=== PATIENT | male | born 1955 | race Caucasian/White ===

== ENCOUNTER 2021-07-20 19:56 | Inpatient (IN) | payer MEDICARE, OTHER ==
[~2021-07-20] VITALS: Ht 175.3 cm; Wt 112.0 kg
[2021-07-20] MEDS ORDERED: temazepam 15mg capsule PO PRN (21:00)
--- NOTE | 2021-07-20 22:00 | NUR ---
Patient in room PCU 3024. I have received report from Sue ROMAN and had the opportunity to ask questions and assume patient care.
[2021-07-20 23:00] VITALS: BP 145/75
[2021-07-20] MEDS ORDERED: morphine 2 MG/ML inj. syringe IV PRN ×2 (23:50)
[2021-07-20] MEDS ORDERED: acetaminophen 325mg tablet PO PRN ×2 (23:50)
[2021-07-20] MEDS ORDERED: HYDROcodone/acetaminophen 5mg/325mg tablet PO PRN (23:50)
[2021-07-20] MEDS ORDERED: mag hydrox/Alum hydrox/simeth 30ml oral suspension PO PRN (23:50)
[2021-07-20] MEDS ORDERED: magnesium hydroxide 30ml (MOM) UD suspension PO PRN (23:50)
[2021-07-20] MEDS ORDERED: ondansetron 4mg rapidly disintigrating tab PO PRN (23:50)
[2021-07-20] MEDS: normal saline 1000ml 1,000 ML IV SCH (23:50)
[2021-07-20] MEDS ORDERED: HYDROmorphone inj. 0.5 MG/0.5 ML DISP.SYRIN IV PRN (23:50)
[2021-07-20] MEDS ORDERED: bisacodyl 10mg suppository rectal RC PRN (23:50)
[2021-07-20] MEDS ORDERED: diphenhydrAMINE 25mg capsule PO PRN (23:50)
[2021-07-20] MEDS ORDERED: diphenhydrAMINE 50 mg/ml inj IV PRN (23:50)
[2021-07-20] MEDS ORDERED: ondansetron/PF 4mg/2ml inj IV PRN (23:50)
[2021-07-20] MEDS ORDERED: HYDROcodone/acetaminophen 10/325mg tab PO PRN (23:50)
[2021-07-20] MEDS ORDERED: glucagon, human recombinant 1mg kit SUBCUT PRN (23:55)
[2021-07-20] MEDS ORDERED: dextrose 50%-water 50ml dispensing syringe IV PRN ×2 (23:55)
[2021-07-20] MEDS ORDERED: MESSAGE TO PHARMACY PO ONE (23:55)
[2021-07-20] MEDS ORDERED: dextrose ORAL solution 15 GM/59 ML bottle PO PRN ×2 (23:55)
[2021-07-21 01:56] LABS: BASOPHILS % (AUTO) 0.1 % (0-1); EOSINOPHILS % (AUTO) 0.1 % (0-6); HEMATOCRIT 30.8 % (42.0-52.0); HEMOGLOBIN 9.7 g/dl (14.0-17.9); LYMPHOCYTES # (AUTO) 0.2 X10'3 (1.1-4.8); LYMPHOCYTES % (AUTO) 1.8 % (21-51); MEAN CORPUSCULAR HGB CONC 31.6 g/dL (33.0-36.5); MEAN CORPUSCULAR VOLUME 85.4 FL (78-98); MEAN PLATELET VOLUME 8.4 FL (7.4-10.4); MONOCYTES # (AUTO) 0.1 X10'3 (0-0.9); NEUTROPHILS # (AUTO) 12.8 X10'3 (1.8-7.7); PLATELET COUNT 250 X10'3 (140-440); WHITE BLOOD COUNT 13.2 X10'3 (4.5-11.0)
[2021-07-21 02:00] VITALS: BP 128/78
[2021-07-21] MEDS: heparin, porcine 5000 units/ml vial SQ SCH ×3 (02:00→16:52)
[2021-07-21 02:12] LABS: ALANINE AMINOTRANSFERASE 24 U/L (12-78); ALBUMIN 1.7 G/DL (3.4-5.0); ALBUMIN/GLOBULIN RATIO 0.3 (1.1-1.5); ALKALINE PHOSPHATASE 115 IU/L (46-116); ANION GAP 6 (8-16); ASPARTATE AMINO TRANSFERASE 26 U/L (10-37); BILIRUBIN,TOTAL 0.3 MG/DL (0.1-1.0); BLOOD UREA NITROGEN 50 MG/DL (7-18); BUN/CREATININE RATIO 21.6 (5.4-32.0); CALCIUM 7.9 MG/DL (8.5-10.1); CHLORIDE 105 MMOL/L (99-107); CHOL/HDL RATIO 4.3 (0.00-4.99); CHOLESTEROL 133 MG/DL (0-200); CREATININE 2.31 MG/DL (0.60-1.10); GLUCOSE 120 MG/DL (70-104); HDL CHOLESTEROL 31 MG/DL (35-60); LDL CHOLESTEROL 82 MG/DL (50-100); MAGNESIUM 1.2 MG/DL (1.5-2.4); PHOSPHORUS 4.7 MG/DL (2.3-4.5); POTASSIUM 5.1 MMOL/L (3.5-5.1); SODIUM 141 MMOL/L (135-145); TOTAL CARBON DIOXIDE 30.1 MMOL/L (24-32); TOTAL PROTEIN 7.1 G/DL (6.4-8.2); TRIGLYCERIDES 69 MG/DL (20-135); eGFR 28 ML/MIN
[2021-07-21 02:14] LABS: HEMOGLOBIN A1C 8.4 % (4.5-6.2)
[2021-07-21 02:36] LABS: APTT 34 SECONDS (22-32)
[2021-07-21] MEDS ORDERED: vancomycin/NS 1 GM ADD-VANTAGE 250 ML IV ONE (02:46)
[2021-07-21] MEDS ORDERED: LANTUS SQ (05:14)
[2021-07-21] MEDS ORDERED: LOSA100T57 PO (05:14)
[2021-07-21] MEDS ORDERED: PANT40TA54 PO (05:14)
[2021-07-21 06:00] VITALS: BP 149/72
--- NOTE | 2021-07-21 06:07 | NUR ---
Patient in room PCU 3024. I have received report from Makenzie ROMAN and had the opportunity to ask questions and assume patient care.
--- NOTE | 2021-07-21 06:38 | NUR ---
Problems reprioritized. Patient report given, questions answered & plan of care reviewed with Jaz ROMAN.
[2021-07-21] MEDS ORDERED: pantoprazole 40mg Tablet.DR PO SCH (07:30)
[2021-07-21] MEDS ORDERED: piperacillin/tazo 4.5gm/100ml 100 ML IV SCH (08:00)
[2021-07-21] MEDS: pantoprazole 40mg Tablet.DR PO SCH (09:22)
[2021-07-21] MEDS: docusate sod 100mg capsule PO SCH ×2 (09:22→19:20)
[2021-07-21] MEDS ORDERED: pregabalin 75mg capsule PO SCH (10:45)
[2021-07-21 11:00] VITALS: BP 158/82
--- NOTE | 2021-07-21 11:21 | NUR ---
Diabetes Consult: Noted A1C 8.4 Pt states he is tired and would prefer written DM ed to be placed in chart. Written DM ed w/ RD contact info placed in pt chart. Addendum: 07/21/21 at [address] Amended: Links added.
[2021-07-21] MEDS: nicotine 14mg patch - 24hr TD SCH (11:28)
[2021-07-21] MEDS: methadone 5mg tablet PO SCH ×2 (11:30→19:18)
[2021-07-21] MEDS: methadone 10mg tablet PO SCH ×2 (11:30→19:19)
[2021-07-21] MEDS ORDERED: METH-603 PO (13:01)
[2021-07-21] MEDS ORDERED: PREG200C28 PO (13:01)
[2021-07-21] MEDS ORDERED: TRAZ-251 PO (13:01)
[2021-07-21] MEDS ORDERED: ALBU8.5H17 IH (13:01)
[2021-07-21] MEDS ORDERED: DULA1.5P SQ (13:01)
[2021-07-21] MEDS ORDERED: LISI20TA28 PO (13:01)
[2021-07-21] MEDS ORDERED: ASPI-1397 PO (13:01)
[2021-07-21] MEDS: insulin Lispro (HumaLOG) vial - multi-dose SQ SCH ×2 (14:42→19:26)
[2021-07-21] MEDS ORDERED: potassium CL 10mEq/100ml bag 100 ML IV PRN (15:15)
[2021-07-21] MEDS ORDERED: potassium Cl 20 mEq SR tablet PO PRN ×2 (15:15)
[2021-07-21] MEDS ORDERED: magnesium 4gm in 100ml NS 100 ML IV PRN (15:15)
[2021-07-21] MEDS ORDERED: magnesium 2GM in 50ml NS 50 ML IV PRN (15:15)
[2021-07-21] MEDS: piperacillin/tazo 4.5gm/100ml 100 ML IV SCH (16:52)
[2021-07-21 18:00] VITALS: BP 149/71
--- NOTE | 2021-07-21 18:16 | NUR ---
Problems reprioritized. Patient report given, questions answered & plan of care reviewed with Makenzie ROMAN, patient stable at the transfer of care.
[2021-07-21] MEDS ORDERED: pantoprazole 40mg Tablet.DR PO PRN (18:30)
[2021-07-21] MEDS ORDERED: albuterol 2.5 MG/3 ML nebule NEB PRN (18:30)
[2021-07-21] MEDS: lactobacillus rhamnosus 10,000 MMU CELLS/CAPSULE PO SCH (19:19)
[2021-07-21] MEDS: normal saline 1000ml 1,000 ML IV SCH (19:50)
[2021-07-21] MEDS ORDERED: methadone 10mg tablet PO SCH (20:00)
[2021-07-21] MEDS: K and/or MAG REPLACEMENT MC SCH (20:00)
[2021-07-21] MEDS: pregabalin 75mg capsule PO SCH (21:29)
[2021-07-21] MEDS: pregabalin 25mg capsule PO SCH (21:30)
[2021-07-21] MEDS: insulin glargine (Lantus) pen - multi-dose SQ SCH (21:41)
[2021-07-21 22:00] VITALS: BP 158/78
[2021-07-21] MEDS ORDERED: nitroGLYCERIN 0.4mg SUBLingual tab SL PRN (23:10)
[2021-07-21] MEDS ORDERED: regadenoson 0.4mg/5ml syringe IV PRN (23:10)
[2021-07-21] MEDS ORDERED: aminophylline 250mg/10ml inj. IV PRN (23:10)
[2021-07-21] MEDS ORDERED: metoprolol tartrate 1mg/ml inj IV PRN (23:10)
[2021-07-22] MEDS: traZODone 50mg tablet PO PRN ×2 (01:26→21:34)
[2021-07-22] MEDS: heparin, porcine 5000 units/ml vial SQ SCH ×3 (01:27→16:59)
[2021-07-22] MEDS: piperacillin/tazo 4.5gm/100ml 100 ML IV SCH ×3 (01:27→16:58)
[2021-07-22 02:00] VITALS: BP 113/68
[2021-07-22 02:10] LABS: BASOPHILS # (AUTO) 0.1 X10'3 (0-0.2); BASOPHILS % (AUTO) 0.5 % (0-1); EOSINOPHILS # (AUTO) 0.1 X10'3 (0-0.9); EOSINOPHILS % (AUTO) 0.4 % (0-6); HEMATOCRIT 28.1 % (42.0-52.0); HEMOGLOBIN 9.1 g/dl (14.0-17.9); LYMPHOCYTES # (AUTO) 1.2 X10'3 (1.1-4.8); LYMPHOCYTES % (AUTO) 9.3 % (21-51); MEAN CORPUSCULAR HEMOGLOBIN 27.3 PG (27.0-31.0); MEAN CORPUSCULAR HGB CONC 32.5 g/dL (33.0-36.5); MEAN PLATELET VOLUME 8.6 FL (7.4-10.4); MONOCYTES # (AUTO) 1.1 X10'3 (0-0.9); NEUTROPHILS # (AUTO) 10.9 X10'3 (1.8-7.7); NEUTROPHILS % (AUTO) 81.8 % (42-75); PLATELET COUNT 275 X10'3 (140-440); RED BLOOD COUNT 3.35 X10'6 (4.70-6.10); RED CELL DISTRIBUTION WIDTH 16.4 % (11.5-14.5); WHITE BLOOD COUNT 13.3 X10'3 (4.5-11.0)
[2021-07-22 02:25] LABS: ALANINE AMINOTRANSFERASE 14 U/L (12-78); ALBUMIN 1.6 G/DL (3.4-5.0); ALBUMIN/GLOBULIN RATIO 0.3 (1.1-1.5); ALKALINE PHOSPHATASE 97 IU/L (46-116); ANION GAP 7 (8-16); ASPARTATE AMINO TRANSFERASE 18 U/L (10-37); BILIRUBIN,TOTAL 0.2 MG/DL (0.1-1.0); BLOOD UREA NITROGEN 55 MG/DL (7-18); BUN/CREATININE RATIO 29.1 (5.4-32.0); CALCIUM 7.6 MG/DL (8.5-10.1); CHLORIDE 107 MMOL/L (99-107); CREATININE 1.89 MG/DL (0.60-1.10); GLUCOSE 100 MG/DL (70-104); SODIUM 141 MMOL/L (135-145); TOTAL CARBON DIOXIDE 26.8 MMOL/L (24-32); TOTAL PROTEIN 6.2 G/DL (6.4-8.2); eGFR 36 ML/MIN
[2021-07-22 02:29] LABS: MAGNESIUM 1.4 MG/DL (1.5-2.4)
[2021-07-22 03:07] LABS: TOTAL CELLS COUNTED 100
[2021-07-22 03:25] LABS: ANISOCYTOSIS 1+; PLATELET ESTIMATE NORMAL
[2021-07-22] MEDS: VANCOMYCIN 750MG IV in NS 250 ML IV SCH (03:48)
[2021-07-22] MEDS: normal saline 1000ml 1,000 ML IV SCH ×2 (05:50→16:58)
[2021-07-22 06:06] VITALS: BP 134/57
[2021-07-22] MEDS: nicotine 14mg patch - 24hr TD SCH (08:55)
[2021-07-22] MEDS: pregabalin 75mg capsule PO SCH ×3 (08:56→20:11)
[2021-07-22] MEDS: pregabalin 25mg capsule PO SCH ×3 (08:57→20:10)
[2021-07-22] MEDS: methadone 5mg tablet PO SCH ×2 (08:57→20:10)
[2021-07-22] MEDS: docusate sod 100mg capsule PO SCH ×2 (08:57→20:10)
[2021-07-22] MEDS: aspirin 81mg, enteric-coated 1 TAB TABLET.DR PO SCH (08:57)
[2021-07-22] MEDS: lactobacillus rhamnosus 10,000 MMU CELLS/CAPSULE PO SCH ×2 (08:57→20:10)
[2021-07-22] MEDS: methadone 10mg tablet PO SCH ×2 (09:09→20:14)
[2021-07-22] MEDS: K and/or MAG REPLACEMENT MC SCH ×2 (09:10→20:00)
[2021-07-22] MEDS: pantoprazole 40mg Tablet.DR PO SCH (09:10)
[2021-07-22] MEDS: magnesium Cl slow-release 64mg tablet PO PRN ×2 (09:12→20:21)
[2021-07-22 11:11] VITALS: BP 138/85
[2021-07-22] MEDS: ipratropium/albuterol 3ml nebule NEB PRN ×2 (12:45→20:36)
--- NOTE | 2021-07-22 15:14 | NUR ---
WOUND INFECTION EDUCATION PROVIDED BY WOUND CARE 1. Patient instructed to call their primary doctor, or go the ED immediately if any of the following symptoms occur: * Increased pain in wound * Increase in drainage from the wound * Redness in the skin surrounding the wound * Warmth in the skin surrounding the wound * Bleeding from the wound * Temperature of 101 or greater 2. If any of these occur while in the hospital tell a nurse immediately. PRESSURE ULCER EDUCATION: DEFINITION: A pressure ulcer is an area of skin that breaks down when you stay in one position too long. The constant pressure against the skin reduces the blood flow to that area and the affected tissue dies. CAUSES: "Being bedridden or in a wheelchair "Fragile skin "Having a chronic condition, such as diabetes or vascular disease "Inability to move certain parts of your body without assistance "Older age "Incontinence of urine or stool SYMPTOMS: "A reddened area that DOES NOT turn white when pressed on - this can be the beginning of a pressure ulcer "A blister, deep sore or a crater - these can be advanced pressure ulcers FIRST AID: "Relieve the pressure on this area "Keep the area clean and dry "Call your primary doctor if you see any of the above symptoms "DO NOT massage the area "DO NOT use a donut shaped or ring shaped pillow- these actually interfere with the blood flow and cause complications PREVENTION: "Check for pressure ulcers everyday "Change position at least every two hours to relieve pressure "Use items that help relieve pressure- pillows, sheepskin, foam padding, and powders. "Keep skin clean and dry "Eat healthy well balanced meals "Exercise daily IF YOU SEE ANY OF THESE SYMPTOMS WHILE IN THE HOSPITAL - TELL YOUR NURSE IMMEDIATELY. IF YOU SEE ANY OF THESE SYMPTOMS WHILE AT HOME OR HAVE ANY QUESTIONS OR CONCERNS ABOUT PRESSURE ULCERS - CALL YOUR PRIMARY DOCTOR IMMEDIATELY. Addendum: 07/22/21 at 1515 by Megan Rodriguez RN Amended: Links added.
[2021-07-22 15:15] VITALS: BP 121/79
[2021-07-22 18:00] VITALS: BP 140/73
--- NOTE | 2021-07-22 18:40 | NUR ---
Patient in room PCU 3024. I have received report from TACO ROMAN and had the opportunity to ask questions and assume patient care.
[2021-07-22] MEDS: metoprolol tartrate 12.5mg (1/2 tablet) PO SCH (20:10)
[2021-07-22] MEDS: insulin glargine (Lantus) pen - multi-dose SQ SCH (21:00)
[2021-07-22] MEDS ORDERED: morphine 4 MG/ML inj SYRINge IV ONE (21:50)
[2021-07-22 22:00] VITALS: BP 142/106
[2021-07-23] MEDS: piperacillin/tazo 4.5gm/100ml 100 ML IV SCH ×3 (00:31→15:19)
[2021-07-23] MEDS: heparin, porcine 5000 units/ml vial SQ SCH ×3 (00:31→15:20)
[2021-07-23 02:00] VITALS: BP 145/78
[2021-07-23] MEDS: VANCOMYCIN 750MG IV in NS 250 ML IV SCH (04:49)
[2021-07-23] MEDS: normal saline 1000ml 1,000 ML IV SCH ×2 (04:58→11:50)
[2021-07-23 06:00] VITALS: BP 133/82
--- NOTE | 2021-07-23 06:20 | NUR ---
Problems reprioritized. Patient report given, questions answered & plan of care reviewed with RAMIRO ROMAN.
[2021-07-23] MEDS: pregabalin 25mg capsule PO SCH ×3 (07:42→20:46)
[2021-07-23] MEDS: metoprolol tartrate 12.5mg (1/2 tablet) PO SCH ×2 (07:42→21:01)
[2021-07-23] MEDS: nicotine 14mg patch - 24hr TD SCH (07:43)
[2021-07-23] MEDS: pregabalin 75mg capsule PO SCH ×3 (07:43→20:46)
[2021-07-23] MEDS: methadone 5mg tablet PO SCH ×2 (07:44→20:47)
[2021-07-23] MEDS: pantoprazole 40mg Tablet.DR PO SCH (07:45)
[2021-07-23] MEDS: lisinopril 20mg tablet PO SCH (07:45)
[2021-07-23] MEDS: methadone 10mg tablet PO SCH ×2 (07:45→20:46)
[2021-07-23] MEDS: lactobacillus rhamnosus 10,000 MMU CELLS/CAPSULE PO SCH ×2 (07:45→20:46)
[2021-07-23] MEDS: docusate sod 100mg capsule PO SCH (07:47)
[2021-07-23] MEDS: aspirin 81mg, enteric-coated 1 TAB TABLET.DR PO SCH (07:48)
[2021-07-23] MEDS: K and/or MAG REPLACEMENT MC SCH ×2 (07:48→20:00)
[2021-07-23 08:29] LABS: ALANINE AMINOTRANSFERASE 14 U/L (12-78); ALBUMIN 1.9 G/DL (3.4-5.0); ALBUMIN/GLOBULIN RATIO 0.3 (1.1-1.5); ALKALINE PHOSPHATASE 105 IU/L (46-116); ANION GAP 9 (8-16); ASPARTATE AMINO TRANSFERASE 16 U/L (10-37); BILIRUBIN,TOTAL 0.3 MG/DL (0.1-1.0); BLOOD UREA NITROGEN 57 MG/DL (7-18); BUN/CREATININE RATIO 25.6 (5.4-32.0); CHLORIDE 107 MMOL/L (99-107); CREATININE 2.23 MG/DL (0.60-1.10); GLUCOSE 124 MG/DL (70-104); MAGNESIUM 1.5 MG/DL (1.5-2.4); POTASSIUM 5.4 MMOL/L (3.5-5.1); SODIUM 143 MMOL/L (135-145); TOTAL CARBON DIOXIDE 27.4 MMOL/L (24-32); TOTAL PROTEIN 7.5 G/DL (6.4-8.2); eGFR 29 ML/MIN
[2021-07-23 11:00] VITALS: BP 148/76
[2021-07-23 12:25] LABS: BASOPHILS # (AUTO) 0.1 X10'3 (0-0.2); BASOPHILS % (AUTO) 0.5 % (0-1); EOSINOPHILS # (AUTO) 0.1 X10'3 (0-0.9); EOSINOPHILS % (AUTO) 1.4 % (0-6); HEMATOCRIT 31.6 % (42.0-52.0); HEMOGLOBIN 10.1 g/dl (14.0-17.9); LYMPHOCYTES % (AUTO) 9.1 % (21-51); MEAN CORPUSCULAR HEMOGLOBIN 27.5 PG (27.0-31.0); MEAN CORPUSCULAR HGB CONC 31.9 g/dL (33.0-36.5); MEAN CORPUSCULAR VOLUME 86.3 FL (78-98); MONOCYTES # (AUTO) 1.1 X10'3 (0-0.9); MONOCYTES % (AUTO) 10.1 % (2-12); NEUTROPHILS # (AUTO) 8.5 X10'3 (1.8-7.7); NEUTROPHILS % (AUTO) 78.9 % (42-75); PLATELET COUNT 263 X10'3 (140-440); RED BLOOD COUNT 3.66 X10'6 (4.70-6.10); RED CELL DISTRIBUTION WIDTH 16.7 % (11.5-14.5); WHITE BLOOD COUNT 10.7 X10'3 (4.5-11.0)
[2021-07-23 15:00] VITALS: BP 154/77
[2021-07-23] MEDS: albuterol 2.5 MG/3 ML nebule NEB SCH ×2 (16:18→21:00)
[2021-07-23] MEDS ORDERED: furosemide 40mg/4ml inj IV ONE (17:50)
[2021-07-23 18:00] VITALS: BP 140/54
[2021-07-23] MEDS: ipratropium/albuterol 3ml nebule NEB PRN (20:11)
[2021-07-23 20:29] LABS: ABG BASE EXCESS 1.7 mmol/L (-2.0-2.0); ABG HCO3 28.6 mmol/L (22.0-26.0); ABG OXYGEN SATURATION 96.8 % (94-97); ABG PCO2 (T) 56.1 mmHg (35.0-48.0); ABG PO2 (T) 98.4 mmHg (75.0-100.0); ALLEN'S TEST POSITIVE; FCOHb 0.3 % (0.0-3.9); FLOW 12 L/min; FMetHb 0.2 % (0.0-1.5); FO2Hb 96.3 % (94-97); PATIENT TEMPERATURE 36.6; TOTAL HEMOGLOBIN 10.3 G/dl (14.0-18.0)
[2021-07-23] MEDS: insulin glargine (Lantus) pen - multi-dose SQ SCH (21:00)
[2021-07-23 22:00] VITALS: BP 147/58
[2021-07-24] MEDS: piperacillin/tazo 4.5gm/100ml 100 ML IV SCH ×3 (00:26→19:54)
[2021-07-24] MEDS: heparin, porcine 5000 units/ml vial SQ SCH ×3 (00:27→19:54)
[2021-07-24] MEDS: traZODone 50mg tablet PO PRN (00:46)
[2021-07-24] MEDS: normal saline 1000ml 1,000 ML IV SCH ×2 (00:56→19:53)
[2021-07-24 01:30] LABS: ALANINE AMINOTRANSFERASE 15 U/L (12-78); ALBUMIN 1.8 G/DL (3.4-5.0); ALBUMIN/GLOBULIN RATIO 0.4 (1.1-1.5); ALKALINE PHOSPHATASE 102 IU/L (46-116); ANION GAP 6 (8-16); ASPARTATE AMINO TRANSFERASE 13 U/L (10-37); BILIRUBIN,TOTAL 0.3 MG/DL (0.1-1.0); BLOOD UREA NITROGEN 57 MG/DL (7-18); BUN/CREATININE RATIO 24.8 (5.4-32.0); CALCIUM 7.8 MG/DL (8.5-10.1); CHLORIDE 104 MMOL/L (99-107); GLUCOSE 208 MG/DL (70-104); MAGNESIUM 1.5 MG/DL (1.5-2.4); POTASSIUM 5.4 MMOL/L (3.5-5.1); SODIUM 140 MMOL/L (135-145); TOTAL CARBON DIOXIDE 29.8 MMOL/L (24-32); TOTAL PROTEIN 6.6 G/DL (6.4-8.2); VANCOMYCIN,TROUGH 14.7 UG/ML (6.0-14.0); eGFR 28 ML/MIN
[2021-07-24] MEDS: ipratropium/albuterol 3ml nebule NEB PRN (01:58)
[2021-07-24] MEDS: albuterol 2.5 MG/3 ML nebule NEB SCH ×4 (01:59→19:55)
[2021-07-24] MEDS ORDERED: VANCOMYCIN LEVEL IV ONE (02:30)
[2021-07-24] MEDS: VANCOMYCIN 750MG IV in NS 250 ML IV SCH (03:31)
[2021-07-24 06:00] VITALS: BP 161/71
--- NOTE | 2021-07-24 06:08 | NUR ---
Patient in room PCU 3024. I have received report from Jacquelin ROMAN and had the opportunity to ask questions and assume patient care.
--- NOTE | 2021-07-24 06:35 | NUR ---
Problems reprioritized. Patient report given, questions answered & plan of care reviewed with Gabriel. Addendum: 07/24/21 at 0635 by Jacquelin Rodriguez RN Amended: Links added.
[2021-07-24 07:24] LABS: BASOPHILS % (AUTO) 0.6 % (0-1); EOSINOPHILS # (AUTO) 0.1 X10'3 (0-0.9); EOSINOPHILS % (AUTO) 1.6 % (0-6); HEMOGLOBIN 9.6 g/dl (14.0-17.9); LYMPHOCYTES % (AUTO) 12.8 % (21-51); MEAN CORPUSCULAR HEMOGLOBIN 27.2 PG (27.0-31.0); MONOCYTES # (AUTO) 0.8 X10'3 (0-0.9); MONOCYTES % (AUTO) 10.3 % (2-12); NEUTROPHILS % (AUTO) 74.7 % (42-75); PLATELET COUNT 217 X10'3 (140-440); RED BLOOD COUNT 3.53 X10'6 (4.70-6.10); RED CELL DISTRIBUTION WIDTH 16.4 % (11.5-14.5)
[2021-07-24] MEDS: K and/or MAG REPLACEMENT MC SCH ×2 (08:00→20:00)
[2021-07-24] MEDS: nicotine 14mg patch - 24hr TD SCH (10:01)
[2021-07-24] MEDS: metoprolol tartrate 12.5mg (1/2 tablet) PO SCH ×2 (10:02→19:56)
[2021-07-24] MEDS: lisinopril 20mg tablet PO SCH (10:03)
[2021-07-24] MEDS: pregabalin 75mg capsule PO SCH ×3 (10:03→20:22)
[2021-07-24] MEDS: pantoprazole 40mg Tablet.DR PO SCH (10:03)
[2021-07-24] MEDS: aspirin 81mg, enteric-coated 1 TAB TABLET.DR PO SCH (10:04)
[2021-07-24] MEDS: lactobacillus rhamnosus 10,000 MMU CELLS/CAPSULE PO SCH ×2 (10:04→19:55)
[2021-07-24] MEDS: methadone 5mg tablet PO SCH ×2 (10:04→19:55)
[2021-07-24] MEDS: pregabalin 25mg capsule PO SCH ×3 (10:04→20:22)
[2021-07-24] MEDS: methadone 10mg tablet PO SCH ×2 (10:13→19:55)
[2021-07-24 11:00] VITALS: BP 129/36
[2021-07-24 15:00] VITALS: BP 159/119
--- NOTE | 2021-07-24 15:16 | NUR ---
Paged Dr. Rosales regarding PT eval and treat. PAGER ID: [phone] MESSAGE: [phone], Noam Villalobos. Patient keeps asking to sit up at bedside. There is no order for PT eval, is this something you can order? Jaz [facility] [id number]
--- NOTE | 2021-07-24 18:52 | NUR ---
Problems reprioritized. Patient report given, questions answered & plan of care reviewed with Hong ROMAN, patient stable at transfer of care.
[2021-07-24 19:00] VITALS: BP 151/75
--- NOTE | 2021-07-24 19:02 | NUR ---
Patient in room PCU 3024. I have received report from Jaz ROMAN and had the opportunity to ask questions and assume patient care.
[2021-07-24] MEDS: insulin Lispro (HumaLOG) vial - multi-dose SQ SCH (20:19)
[2021-07-24 22:00] VITALS: BP 117/53
[2021-07-24] MEDS: insulin glargine (Lantus) pen - multi-dose SQ SCH (23:04)
[2021-07-25] MEDS: piperacillin/tazo 4.5gm/100ml 100 ML IV SCH ×2 (01:41→08:27)
[2021-07-25] MEDS: heparin, porcine 5000 units/ml vial SQ SCH ×2 (01:42→08:33)
[2021-07-25 02:00] VITALS: BP 140/69
[2021-07-25] MEDS: albuterol 2.5 MG/3 ML nebule NEB SCH (02:25)
[2021-07-25] MEDS: VANCOMYCIN 750MG IV in NS 250 ML IV SCH (03:14)
[2021-07-25] MEDS: normal saline 1000ml 1,000 ML IV SCH (05:29)
[2021-07-25 06:45] LABS: BASOPHILS # (AUTO) 0.1 X10'3 (0-0.2); BASOPHILS % (AUTO) 0.5 % (0-1); EOSINOPHILS # (AUTO) 0.2 X10'3 (0-0.9); HEMOGLOBIN 9.7 g/dl (14.0-17.9); LYMPHOCYTES # (AUTO) 1.2 X10'3 (1.1-4.8); LYMPHOCYTES % (AUTO) 12.6 % (21-51); MEAN CORPUSCULAR HEMOGLOBIN 27.5 PG (27.0-31.0); MEAN CORPUSCULAR HGB CONC 32.2 g/dL (33.0-36.5); MEAN CORPUSCULAR VOLUME 85.3 FL (78-98); MEAN PLATELET VOLUME 8.3 FL (7.4-10.4); MONOCYTES # (AUTO) 0.9 X10'3 (0-0.9); MONOCYTES % (AUTO) 9.7 % (2-12); NEUTROPHILS # (AUTO) 7.2 X10'3 (1.8-7.7); NEUTROPHILS % (AUTO) 75.2 % (42-75); PLATELET COUNT 242 X10'3 (140-440); RED BLOOD COUNT 3.52 X10'6 (4.70-6.10); WHITE BLOOD COUNT 9.6 X10'3 (4.5-11.0)
--- NOTE | 2021-07-25 06:45 | NUR ---
Patient in room PCU 3023W. I have received report from ABEL FERNANDEZ and had the opportunity to ask questions and assume patient care.
[2021-07-25 07:00] VITALS: BP 144/71
[2021-07-25 07:11] LABS: ALANINE AMINOTRANSFERASE 17 U/L (12-78); ALBUMIN 1.8 G/DL (3.4-5.0); ALBUMIN/GLOBULIN RATIO 0.4 (1.1-1.5); ALKALINE PHOSPHATASE 101 IU/L (46-116); ANION GAP 9 (8-16); ASPARTATE AMINO TRANSFERASE 17 U/L (10-37); BILIRUBIN,TOTAL 0.4 MG/DL (0.1-1.0); BLOOD UREA NITROGEN 55 MG/DL (7-18); BUN/CREATININE RATIO 22.3 (5.4-32.0); CALCIUM 8.1 MG/DL (8.5-10.1); CHLORIDE 105 MMOL/L (99-107); CREATININE 2.47 MG/DL (0.60-1.10); GLUCOSE 125 MG/DL (70-104); MAGNESIUM 1.4 MG/DL (1.5-2.4); POTASSIUM 5.2 MMOL/L (3.5-5.1); SODIUM 141 MMOL/L (135-145); TOTAL CARBON DIOXIDE 27.4 MMOL/L (24-32); TOTAL PROTEIN 6.7 G/DL (6.4-8.2); eGFR 26 ML/MIN
[2021-07-25] MEDS: K and/or MAG REPLACEMENT MC SCH (08:00)
[2021-07-25] MEDS: nicotine 14mg patch - 24hr TD SCH (08:33)
[2021-07-25 08:34] VITALS: BP_SYST 144
[2021-07-25] MEDS: lisinopril 20mg tablet PO SCH (08:34)
[2021-07-25] MEDS: metoprolol tartrate 12.5mg (1/2 tablet) PO SCH (08:34)
[2021-07-25] MEDS: aspirin 81mg, enteric-coated 1 TAB TABLET.DR PO SCH (08:35)
[2021-07-25] MEDS: methadone 5mg tablet PO SCH (08:35)
[2021-07-25] MEDS: methadone 10mg tablet PO SCH (08:35)
[2021-07-25] MEDS: pregabalin 25mg capsule PO SCH ×2 (08:36→12:05)
[2021-07-25] MEDS: pregabalin 75mg capsule PO SCH ×2 (08:36→12:05)
[2021-07-25] MEDS: pantoprazole 40mg Tablet.DR PO SCH (08:36)
[2021-07-25] MEDS: lactobacillus rhamnosus 10,000 MMU CELLS/CAPSULE PO SCH (08:36)
[2021-07-25] MEDS: insulin Lispro (HumaLOG) vial - multi-dose SQ SCH (08:53)
--- NOTE | 2021-07-25 10:46 | NUR ---
Initial: Pt admitted w/ R heel ulcer w/ ascending wound, osteomyelitis, and PNA per EMR. Pt w/ DTI to coccyx and full thickness wound to R heel per WOC. recommended R BKA though pt apparently is refusing this. Pt currently on Carb Controlled diet w/ avg intake 61% x 11 meals which meets approximately 59% of est energy needs and 71% of est protein needs. Pt may benefit from Faustino smoothies BID to aid wound healing as well as double protein w/ meals. LBM 07/21, recommend routine bowel care. Will continue to monitor. Recs: 1. Continue Carb controlled diet as tolerated 2. Faustino Smoothies BIDBD; pending MD verification 3. Double protein BIDBL 4. Routine bowel care 5. Scaled wt this admit, subsequent weekly wts Addendum: 07/25/21 at [address] Amended: Links added.
[2021-07-25] MEDS ORDERED: AMOX-422 PO (11:34)
--- NOTE | 2021-07-25 12:23 | NUR ---
PATIENT STABLE AND APPROPRIATE FOR DISCHARGE, TELE REMOVED, IV REMOVED, EDUCATION GIVEN, PRESCRIPTION E-SCRIPTED TO PREFERRED PHARMACY, ALL BELONGINGS SENT WITH PATIENT, PATIENT TAKEN HOME BY [facility] ACCOMPANIED BY [facility] STAFF
[2021-07-25] MEDS ORDERED: JUVEN Smoothie Arginine/Glut./Ca2+Bmb (Juven 19.3pkt) 240ml cup PO SCH (17:30)
== END 2021-07-25 12:22 | disposition home or self-care (01) | DRG 557 ==
LOC: PCU 3S 19:56 → UNDOADMIN 19:56 → PCU 3S 23:51
PROVIDERS: ADMIT Family Medicine; ATTEND Family Medicine
PROC: 5A0935A Assistance with Respiratory Ventilation, Less than 24 Consecutive Hours, High Flow/Velocity Cannula (ICD-10-PCS; 2021-07-20)
PROC: 5A0945A Assistance with Respiratory Ventilation, 24-96 Consecutive Hours, High Flow/Velocity Cannula (ICD-10-PCS; principal; 2021-07-21)
DX: M72.6 Necrotizing fasciitis (principal); I21.A1 Myocardial infarction type 2; I13.0 Hypertensive heart and chronic kidney disease with heart failure and stage 1 through stage 4 chronic kidney disease, or unspecified chronic kidney disease; L03.115 Cellulitis of right lower limb; L97.419 Non-pressure chronic ulcer of right heel and midfoot with unspecified severity; M86.8X7 Other osteomyelitis, ankle and foot; J96.10 Chronic respiratory failure, unspecified whether with hypoxia or hypercapnia; N17.9 Acute kidney failure, unspecified; I50.22 Chronic systolic (congestive) heart failure; E11.69 Type 2 diabetes mellitus with other specified complication; E11.51 Type 2 diabetes mellitus with diabetic peripheral angiopathy without gangrene; J44.9 Chronic obstructive pulmonary disease, unspecified; E11.621 Type 2 diabetes mellitus with foot ulcer; E11.65 Type 2 diabetes mellitus with hyperglycemia; N18.9 Chronic kidney disease, unspecified; E11.22 Type 2 diabetes mellitus with diabetic chronic kidney disease; Z89.512 Acquired absence of left leg below knee; Z79.899 Other long term (current) drug therapy; Z79.4 Long term (current) use of insulin; X58.XXXA Exposure to other specified factors, initial encounter; Y99.0 Civilian activity done for income or pay
CPT/HCPCS: 36415; 36600; 71045; 73620; 73700; 80053; 80061; 80202; 82803; 82948; 83036; 83735; 83880; 84100; 84145; 84484; 85007; 85018; 85025; 85610; 85730; 87081; 93005; 93306; 93922; 93926; 94640; 94760; 97110; 97162; 97530; G0378; J1644; J1815; J1940; J2270; J2543; J3370; J3490; J7030; J7050